=== PATIENT | male | born 1985 | race Caucasian/White ===

== ENCOUNTER 2018-02-28 16:51 | Emergency (ER) | payer OTHER ==
[2018-02-28] MEDS ORDERED: SULFA/TRIMETH 800/160 (DS) TAB 1 EA TAB PO ONE (17:35)
--- NOTE | 2018-02-28 17:37 | ED.PDOC ---
History of Present Illness - General Chief Complaint: Laceration Stated Complaint: Laceration to L index finger Time Seen by Provider: 02/28/18 17:25 Source: patient Exam Limitations: no limitations - History of Present Illness Initial Comments: the patient is a 32-year-old male presenting to emergency room after accidentally hitting his right hand with a machete. He has sustained a three- quarter inch laceration just over the metacarpophalangeal joint of the second digit of the left hand, on the radial side. He does appear to be neurovascularly intact. Capillary refills within normal limits. Range of motion is preserved. Strength is preserved. Timing/Duration: momentarily Severity: moderate Improving Factors: nothing Worsening Factors: nothing Associated Symptoms: denies symptoms Allergies/Adverse Reactions: Allergies NO KNOWN ALLERGY Allergy (Verified 02/28/18 17:23) Home Medications: Ambulatory Orders Sulfa/Trimeth 800/160 (Ds) Tab [Bactrim DS Tab] 1 ea PO BID #10 tab 02/28/18 Review of Systems - Review of Systems Constitutional: States: no symptoms reported EENTM: States: no symptoms reported Respiratory: States: no symptoms reported Cardiology: States: no symptoms reported Gastrointestinal/Abdominal: States: no symptoms reported Genitourinary: States: no symptoms reported Musculoskeletal: States: see HPI Skin: States: see HPI Neurological: States: no symptoms reported Endocrine: States: no symptoms reported All other Systems: No Change from Baseline Past Medical History (General) - Patient Medical History Hx Stroke: No Hx Congestive Heart Failure: No Hx Diabetes: No - Vaccination History Hx Tetanus, Diphtheria Vaccination: - 02/28/18 Hx Influenza Vaccination: Yes - 2018 Hx Pneumococcal Vaccination: No - Social History Hx Tobacco Use: No Hx Alcohol Use: No Family Medical History - Family History Father Family History: Unknown Living Status: Still Living Physical Exam - Physical Exam General Appearance: Alert, Comfortable, No apparent distress Eye Exam: bilateral normal Ears, Nose, Throat: hearing grossly normal Respiratory: no respiratory distress, no accessory muscle use Cardiovascular/Chest: normal peripheral pulses, no edema Peripheral Pulses: radial,right: 2+, radial,left: 2+ Rectal Exam: deferred Neurologic: food adviser II-XII nml as tested, no motor/sensory deficits, alert, normal mood/affect, oriented x 3 Skin Exam: normal color - laceration as above. Laceration does not appear to extend down to the joint itself. It just appears to be through the skin. He does have a very small area of decreased sensation just distal to the laceration but it does not appear to extend to the fingertip. Comments: Vital Signs - 24 hr 02/28/18 17:14 Temperature 99.8 F H Pulse Rate [ 95 H Right Radial] Respiratory 18 Rate Blood Pressure 125/80 [Right Arm] O2 Sat by Pulse 98 Oximetry Progress - Progress Progress: 02/28/18 17:37 the patient's a 32-year-old male presenting to the emergency room secondary to accidental laceration at the base of the second digit of the left hand. He does appear to be essentially neurovascularly intact. No evidence of any tendon laceration or joint compromise. The wound is cleaned with sterile saline. 2 simple sutures of 4-0 Ethilon were used for reapproximation. The patient tolerated this well. He can keep it covered with a Band-Aid and triple antibiotic ointment. Sutures need to come out in approximately 10 days. ER warnings were given. Monitor for any evidence of infection. He will be placed on Bactrim for 5 days with the first dose given today. Tetanus shot was given as well. Departure - Departure Clinical Impression: Accidental laceration Disposition: Discharge to Home or Self Care Condition: Fair Departure Forms: ED Discharge - Pt. Copy, Patient Portal Self Enrollment Instructions: DI for Laceration Repair, DI for Laceration Repair -- Simple Diet: regular diet Activity: increase activity as tolerated Prescriptions: Sulfa/Trimeth 800/160 (Ds) Tab [Bactrim DS Tab] 1 ea PO BID #10 tab Home Medications: Ambulatory Orders Sulfa/Trimeth 800/160 (Ds) Tab [Bactrim DS Tab] 1 ea PO BID #10 tab 02/28/18 Additional Instructions: the patient's a 32-year-old male presenting to the emergency room secondary to accidental laceration at the base of the second digit of the left hand. He does appear to be essentially neurovascularly intact. No evidence of any tendon laceration or joint compromise. The wound is cleaned with sterile saline. 2 simple sutures of 4-0 Ethilon were used for reapproximation. The patient tolerated this well. He can keep it covered with a Band-Aid and triple antibiotic ointment. Sutures need to come out in approximately 10 days. ER warnings were given. Monitor for any evidence of infection. He will be placed on Bactrim for 5 days with the first dose given today. Tetanus shot was given as well.
[2018-02-28] MEDS ORDERED: TETANUS,DIPHTHERIA,PERTUSSIS 1 EA SYG IM ONE (17:39)
[2018-02-28 18:59] VITALS: BP 121/78; TEMP 99; O2SAT 97
== END 2018-02-28 18:17 | disposition home or self-care (01) ==
LOC: ER 16:51
DX: S61.211A Laceration without foreign body of left index finger without damage to nail, initial encounter (principal); Z23 Encounter for immunization; W26.0XXA Contact with knife, initial encounter